=== PATIENT | male | born 1950 | race Caucasian/White ===

== ENCOUNTER → 2016-08-06 | Outpatient (CLI) | payer BC | LOC: WCC 11:30 | DX: I87.8 Other specified disorders of veins (principal); L97.919 Non-pressure chronic ulcer of unspecified part of right lower leg with unspecified severity; E66.01 Morbid (severe) obesity due to excess calories | CPT/HCPCS: 13919; 13973; 27517; A6199; A6207; G0463 ==

== ENCOUNTER → 2016-08-13 | Outpatient (CLI) | payer BC | LOC: WCC 09:06 | DX: I87.8 Other specified disorders of veins (principal); L97.919 Non-pressure chronic ulcer of unspecified part of right lower leg with unspecified severity; E66.01 Morbid (severe) obesity due to excess calories | CPT/HCPCS: 13919; 13973; 27517; A6199; A6207; G0463 ==

== ENCOUNTER → 2016-08-20 | Outpatient (CLI) | payer BC | LOC: WCC 08:48 | DX: I87.8 Other specified disorders of veins (principal); L97.529 Non-pressure chronic ulcer of other part of left foot with unspecified severity; L97.519 Non-pressure chronic ulcer of other part of right foot with unspecified severity; E66.01 Morbid (severe) obesity due to excess calories | CPT/HCPCS: 13919; G0463 ==

== ENCOUNTER → 2016-08-27 | Outpatient (CLI) | payer BC | LOC: WCC 08:26 | DX: I87.8 Other specified disorders of veins (principal); E66.01 Morbid (severe) obesity due to excess calories | CPT/HCPCS: 13919; G0463 ==

== ENCOUNTER → 2016-09-03 | Outpatient (CLI) | payer BC | LOC: WCC 08:25 | DX: I87.2 Venous insufficiency (chronic) (peripheral) (principal) | CPT/HCPCS: 13919; G0463 ==

== ENCOUNTER → 2016-09-10 | Outpatient (CLI) | payer BC | LOC: WCC 08:21 | DX: I87.8 Other specified disorders of veins (principal); L97.919 Non-pressure chronic ulcer of unspecified part of right lower leg with unspecified severity; E66.01 Morbid (severe) obesity due to excess calories | CPT/HCPCS: 13919; G0463 ==

== ENCOUNTER → 2016-09-17 | Outpatient (CLI) | payer BC | LOC: WCC 08:22 | DX: I87.8 Other specified disorders of veins (principal); L97.519 Non-pressure chronic ulcer of other part of right foot with unspecified severity; E66.01 Morbid (severe) obesity due to excess calories | CPT/HCPCS: 13919; G0463 ==

== ENCOUNTER → 2016-09-24 | Outpatient (CLI) | payer BC | LOC: WCC 08:20 | DX: I87.8 Other specified disorders of veins (principal); L97.919 Non-pressure chronic ulcer of unspecified part of right lower leg with unspecified severity; E66.01 Morbid (severe) obesity due to excess calories | CPT/HCPCS: 13919; G0463 ==

== ENCOUNTER → 2016-10-01 | Outpatient (CLI) | payer BC | LOC: COL.VAS 09:20 | DX: I87.2 Venous insufficiency (chronic) (peripheral) (principal) ==

== ENCOUNTER → 2016-10-01 | Outpatient (CLI) | payer BC | LOC: WCC 11:12 | DX: I87.8 Other specified disorders of veins (principal); E66.01 Morbid (severe) obesity due to excess calories | CPT/HCPCS: 13919; G0463 ==

== ENCOUNTER → 2016-10-08 | Outpatient (CLI) | payer BC | LOC: WCC 08:20 | DX: I87.8 Other specified disorders of veins (principal); L97.919 Non-pressure chronic ulcer of unspecified part of right lower leg with unspecified severity; I89.0 Lymphedema, not elsewhere classified | CPT/HCPCS: 13919; G0463 ==

== ENCOUNTER → 2016-10-15 | Outpatient (CLI) | payer BC | LOC: WCC 08:20 | DX: I87.8 Other specified disorders of veins (principal); I89.0 Lymphedema, not elsewhere classified; L97.919 Non-pressure chronic ulcer of unspecified part of right lower leg with unspecified severity | CPT/HCPCS: 13919; G0463 ==

== ENCOUNTER → 2016-10-20 | Outpatient (CLI) | payer BC | LOC: WCC 12:12 | DX: I87.8 Other specified disorders of veins (principal); I89.0 Lymphedema, not elsewhere classified; E66.01 Morbid (severe) obesity due to excess calories | CPT/HCPCS: 13919; 13973; A6199; G0463 ==

== ENCOUNTER → 2016-10-20 | Outpatient (CLI) | payer BC | LOC: COL.RAD 09:03 | PROVIDERS: Radiology Diagnostic Radiology | DX: I82.593 Chronic embolism and thrombosis of other specified deep vein of lower extremity, bilateral (principal); L97.829 Non-pressure chronic ulcer of other part of left lower leg with unspecified severity; L97.819 Non-pressure chronic ulcer of other part of right lower leg with unspecified severity | CPT/HCPCS: Q9967 ==

== ENCOUNTER → 2016-10-27 | Outpatient (CLI) | payer BC | LOC: WCC 08:48 | DX: I87.8 Other specified disorders of veins (principal); I89.0 Lymphedema, not elsewhere classified; E66.01 Morbid (severe) obesity due to excess calories | CPT/HCPCS: 13919; G0463 ==

== ENCOUNTER → 2016-11-03 | Outpatient (CLI) | payer BC | LOC: WCC 08:20 | DX: I87.2 Venous insufficiency (chronic) (peripheral) (principal); L97.919 Non-pressure chronic ulcer of unspecified part of right lower leg with unspecified severity; E66.01 Morbid (severe) obesity due to excess calories; I89.0 Lymphedema, not elsewhere classified | CPT/HCPCS: 13919; 27510; A6197; G0463 ==

== ENCOUNTER → 2016-11-10 | Outpatient (CLI) | payer BC | LOC: WCC 08:18 | DX: L97.919 Non-pressure chronic ulcer of unspecified part of right lower leg with unspecified severity (principal); I89.0 Lymphedema, not elsewhere classified; E66.01 Morbid (severe) obesity due to excess calories | CPT/HCPCS: G0463 ==

== ENCOUNTER → 2016-11-17 | Outpatient (CLI) | payer BC | LOC: WCC 08:18 | DX: I89.0 Lymphedema, not elsewhere classified (principal); E66.01 Morbid (severe) obesity due to excess calories | CPT/HCPCS: 13919; 27510; A6197; G0463 ==

== ENCOUNTER → 2016-11-24 | Outpatient (CLI) | payer BC | LOC: WCC 11-21 09:52 | DX: I89.0 Lymphedema, not elsewhere classified (principal); E66.01 Morbid (severe) obesity due to excess calories | CPT/HCPCS: 13919; 13973; 27510; A6197; A6199; G0463 ==

== ENCOUNTER → 2016-12-05 | Outpatient (CLI) | payer BC | LOC: WCC 08:47 | DX: I89.0 Lymphedema, not elsewhere classified (principal); E66.01 Morbid (severe) obesity due to excess calories | CPT/HCPCS: 13919; 13973; A6199; G0463 ==

== ENCOUNTER → 2016-12-12 | Outpatient (CLI) | payer BC | LOC: WCC 08:50 | DX: I89.0 Lymphedema, not elsewhere classified (principal); E66.01 Morbid (severe) obesity due to excess calories | CPT/HCPCS: 13919; 13973; 27510; A6197; A6199; G0463 ==

== ENCOUNTER → 2016-12-17 | Outpatient (CLI) | payer BC | LOC: WCC 09:05 | DX: L03.116 Cellulitis of left lower limb (principal); L03.115 Cellulitis of right lower limb; I89.0 Lymphedema, not elsewhere classified; E66.01 Morbid (severe) obesity due to excess calories | CPT/HCPCS: 13919; 13973; A6199; G0463 ==

== ENCOUNTER → 2016-12-26 | Outpatient (CLI) | payer BC | LOC: WCC 09:26 | DX: Z00.00 Encounter for general adult medical examination without abnormal findings (principal) ==

== ENCOUNTER → 2016-12-26 | Outpatient (CLI) | payer BC | LOC: ZCOL.LAB 14:48 | DX: I87.8 Other specified disorders of veins (principal) ==

== ENCOUNTER → 2017-01-02 | Outpatient (CLI) | payer BC | LOC: WCC 09:40 | DX: Z00.00 Encounter for general adult medical examination without abnormal findings (principal) ==

== ENCOUNTER → 2017-01-09 | Outpatient (CLI) | payer BC | LOC: WCC 09:01 | DX: Z01.89 Encounter for other specified special examinations (principal) ==

== ENCOUNTER → 2017-01-16 | Outpatient (CLI) | payer BC | LOC: WCC 09:27 | DX: Z01.89 Encounter for other specified special examinations (principal) ==

== ENCOUNTER → 2017-01-23 | Outpatient (CLI) | payer BC | LOC: WCC 08:23 | DX: I87.313 Chronic venous hypertension (idiopathic) with ulcer of bilateral lower extremity (principal); I87.333 Chronic venous hypertension (idiopathic) with ulcer and inflammation of bilateral lower extremity; E66.01 Morbid (severe) obesity due to excess calories | CPT/HCPCS: 13919; 13973; A6199; G0463 ==

== ENCOUNTER → 2017-01-30 | Outpatient (CLI) | payer BC | LOC: WCC 08:19 | DX: I87.2 Venous insufficiency (chronic) (peripheral) (principal); L97.819 Non-pressure chronic ulcer of other part of right lower leg with unspecified severity; L97.829 Non-pressure chronic ulcer of other part of left lower leg with unspecified severity; I89.0 Lymphedema, not elsewhere classified; L03.115 Cellulitis of right lower limb; L03.116 Cellulitis of left lower limb | CPT/HCPCS: 13919; 13973; A6199; G0463 ==

== ENCOUNTER → 2017-02-11 | Outpatient (CLI) | payer BC | LOC: WCC 08:52 | DX: I89.0 Lymphedema, not elsewhere classified (principal); L03.116 Cellulitis of left lower limb; L03.115 Cellulitis of right lower limb; E66.01 Morbid (severe) obesity due to excess calories | CPT/HCPCS: 13919; 13973; A6199 ==

== ENCOUNTER 2017-02-17 15:15 | Outpatient (RCR) | payer BC | END 2017-03-16 | LOC: WSPT | DX: I89.0 Lymphedema, not elsewhere classified (principal); E66.01 Morbid (severe) obesity due to excess calories ==

== ENCOUNTER → 2017-02-17 | Outpatient (CLI) | payer BC | LOC: WCC 11:24 | DX: I89.0 Lymphedema, not elsewhere classified (principal); L03.116 Cellulitis of left lower limb; L03.115 Cellulitis of right lower limb | CPT/HCPCS: 13919; 27510; A6197; G0463 ==

== ENCOUNTER → 2017-02-23 | Outpatient (CLI) | payer BC | LOC: WCC 10:49 | DX: I89.0 Lymphedema, not elsewhere classified (principal) | CPT/HCPCS: 13919 ==

== ENCOUNTER → 2017-03-02 | Outpatient (CLI) | payer BC | LOC: WCC 02-23 10:15 | DX: I87.2 Venous insufficiency (chronic) (peripheral) (principal); I89.0 Lymphedema, not elsewhere classified; L03.115 Cellulitis of right lower limb; E66.01 Morbid (severe) obesity due to excess calories | CPT/HCPCS: 13919; G0463 ==

== ENCOUNTER → 2017-03-06 | Outpatient (CLI) | payer BC | LOC: WCC 08:48 | DX: Z01.89 Encounter for other specified special examinations (principal) ==

== ENCOUNTER → 2017-03-13 | Outpatient (CLI) | payer BC | LOC: WCC 08:20 | DX: Z01.89 Encounter for other specified special examinations (principal) ==

== ENCOUNTER → 2017-03-20 | Outpatient (CLI) | payer BC | LOC: WCC 08:21 | DX: I89.0 Lymphedema, not elsewhere classified (principal); L03.115 Cellulitis of right lower limb; L03.116 Cellulitis of left lower limb; E66.01 Morbid (severe) obesity due to excess calories | CPT/HCPCS: G0463 ==

== ENCOUNTER → 2017-03-27 | Outpatient (CLI) | payer BC | LOC: WCC 08:20 | DX: L97.819 Non-pressure chronic ulcer of other part of right lower leg with unspecified severity (principal); L97.829 Non-pressure chronic ulcer of other part of left lower leg with unspecified severity; L03.116 Cellulitis of left lower limb; I87.2 Venous insufficiency (chronic) (peripheral); E66.01 Morbid (severe) obesity due to excess calories | CPT/HCPCS: 17717; A6212; G0463 ==

== ENCOUNTER → 2017-04-10 | Outpatient (CLI) | payer MEDICARE, OTHER | LOC: WCC 08:20 | DX: L03.116 Cellulitis of left lower limb (principal); L03.115 Cellulitis of right lower limb; I89.0 Lymphedema, not elsewhere classified; E66.01 Morbid (severe) obesity due to excess calories ==

== ENCOUNTER → 2017-05-08 | Outpatient (CLI) | payer MEDICARE, OTHER | LOC: WCC 08:23 | DX: I89.0 Lymphedema, not elsewhere classified (principal); E66.01 Morbid (severe) obesity due to excess calories | CPT/HCPCS: G0463 ==

== ENCOUNTER → 2017-09-04 | Outpatient (CLI) | payer MEDICARE, OTHER | LOC: ZCOL.LAB 14:42 | DX: I87.8 Other specified disorders of veins (principal); L03.115 Cellulitis of right lower limb ==

== ENCOUNTER → 2017-11-03 | Outpatient (CLI) | payer MEDICARE, OTHER | LOC: ZCOL.LAB 14:18 | DX: I83.218 Varicose veins of right lower extremity with both ulcer of other part of lower extremity and inflammation (principal); I83.228 Varicose veins of left lower extremity with both ulcer of other part of lower extremity and inflammation ==

== ENCOUNTER → 2017-11-24 | Outpatient (CLI) | payer MEDICARE, OTHER | LOC: ZCOL.LAB 14:31 | DX: L03.115 Cellulitis of right lower limb (principal); I87.8 Other specified disorders of veins ==

== ENCOUNTER 2017-11-27 12:25 | Emergency (ER) | payer MEDICARE ==
[~2017-11-27] VITALS: Ht 177.8 cm; Wt 134.1 kg
[2017-11-27 17:40] LABS: BASO # 0.1 (0.0-0.2); BASO % 0.4 % (0.0-2.0); EOS % 0.2 % (0-4.0); GRAN # 9.1 (1.4-6.5); HEMOGLOBIN 14.6 g/dl (13.5-18.0); LYMPH # 1.7 (1.2-3.4); MEAN CELL VOLUME 86 fl (80.0-100.0); MEAN CORPUSCULAR HEMOGLOBIN 28 pg (27.0-31.0); MEAN CORPUSCULAR HGB CONC 32 g/dl (33.0-37.0); MEAN PLATELET VOLUME 9.2 fl (7.4-10.4); MONO # 0.9 (0.1-0.6); MONO % 7.7 % (1.7-9.3); PLATELET COUNT 426 K/mm3 (130-400); RED BLOOD COUNT 5.26 M/mm3 (4.20-5.60); REDCELL DISTRIBUTION WIDTH-CV 15.4 % (11.5-14.5)
[2017-11-27] MEDS ORDERED: CLEOCIN HCL300 MG PO (17:41)
[2017-11-27] MEDS ORDERED: NORCO 325 MG-51 TAB PO (17:41)
[2017-11-27 17:53] LABS: ALBUMIN 4.3 gm/dL (3.5-5.0); BILIRUBIN,TOTAL 0.6 mg/dL (0.0-1.0); C-REACTIVE PROTEIN 1.7 mg/dL (0.0-0.9); CREATININE, serum 1.06 mg/dL (0.66-1.25); POTASSIUM 5.6 mmol/L (3.4-5.0); TOTAL PROTEIN 8.5 gm/dL (6.4-8.2)
[2017-11-27 17:56] VITALS: BP 169/85; TEMP 98
[2017-11-27 18:15] LABS: ERYTHROCYTE SEDIMENTATION RATE 14 mm/hr (0-30)
[2017-11-27 18:40] VITALS: PULSE 64
== END 2017-11-27 18:40 | disposition home or self-care (01) ==
LOC: COL.ER 12:25
PROVIDERS: Emergency Medicine
DX: L03.116 Cellulitis of left lower limb (principal); L03.115 Cellulitis of right lower limb; E11.9 Type 2 diabetes mellitus without complications; Z79.4 Long term (current) use of insulin

== ENCOUNTER → 2019-02-16 | Outpatient (CLI) | payer MEDICARE, OTHER ==
[~2019-02-16] MED LIST: CLEOCIN HCL300 MG PO; NORCO 325 MG-51 TAB PO
== END ==
LOC: ZCOL.LAB 11:31
DX: I87.8 Other specified disorders of veins (principal); I89.0 Lymphedema, not elsewhere classified; E66.01 Morbid (severe) obesity due to excess calories

== ENCOUNTER → 2019-08-11 | Outpatient (CLI) | payer MEDICARE, OTHER | LOC: ZCOL.LAB 14:01 | DX: L03.116 Cellulitis of left lower limb (principal) ==

== ENCOUNTER → 2019-12-23 | Outpatient (CLI) | payer MEDICARE, OTHER | LOC: ZCOL.LAB 14:22 | DX: I83.009 Varicose veins of unspecified lower extremity with ulcer of unspecified site (principal) ==

== ENCOUNTER → 2021-01-04 | Outpatient (CLI) | payer MEDICARE, OTHER | LOC: ZCOL.LAB 16:44 | DX: I83.009 Varicose veins of unspecified lower extremity with ulcer of unspecified site (principal) ==

== ENCOUNTER → 2021-03-13 | Outpatient (CLI) | payer MEDICARE, OTHER | LOC: ZCOL.LAB 16:25 | DX: I83.009 Varicose veins of unspecified lower extremity with ulcer of unspecified site (principal) ==